=== PATIENT | male | born 1950 | race Caucasian/White ===

== ENCOUNTER 2024-05-08 10:35 | Outpatient (CLI) | payer MEDICARE, OTHER ==
[2024-05-08 11:04] LABS: BASOPHILS % (AUTO) 0.7 % (0-1); EOSINOPHILS # (AUTO) 0.1 X10'3 (0-0.9); EOSINOPHILS % (AUTO) 1.7 % (0-6); HEMATOCRIT 40.7 % (42.0-52.0); HEMOGLOBIN 13.6 g/dl (14.0-17.9); LYMPHOCYTES # (AUTO) 1.3 X10'3 (1.1-4.8); LYMPHOCYTES % (AUTO) 23.8 % (21-51); MEAN CORPUSCULAR HEMOGLOBIN 31.4 PG (27.0-31.0); MEAN CORPUSCULAR HGB CONC 33.5 g/dL (33.0-36.5); MEAN CORPUSCULAR VOLUME 93.7 FL (78-98); MEAN PLATELET VOLUME 7.9 FL (7.4-10.4); MONOCYTES # (AUTO) 0.5 X10'3 (0-0.9); MONOCYTES % (AUTO) 8.9 % (2-12); NEUTROPHILS # (AUTO) 3.6 X10'3 (1.8-7.7); NEUTROPHILS % (AUTO) 64.9 % (42-75); PLATELET COUNT 200 X10'3 (140-440); RED BLOOD COUNT 4.35 X10'6 (4.70-6.10); RED CELL DISTRIBUTION WIDTH 14.7 % (11.5-14.5); WHITE BLOOD COUNT 5.6 X10'3 (4.5-11.0)
[2024-05-08] MEDS ORDERED: IODIXANOL 320 MG/ML INFUS..BTL 100ML IV ONE (11:11)
[2024-05-08 11:13] LABS: APTT 29 SECONDS (22-32); INR 1.2 INR; PROTHROMBIN TIME 12.6 SECONDS (9.0-12.0)
[2024-05-08 11:22] LABS: ALANINE AMINOTRANSFERASE 17 U/L (12-78); ALBUMIN 3.3 G/DL (3.4-5.0); ALKALINE PHOSPHATASE 91 IU/L (46-116); ANION GAP 5 (8-16); ASPARTATE AMINO TRANSFERASE 15 U/L (10-37); BILIRUBIN,TOTAL 0.6 MG/DL (0.1-1.0); BLOOD UREA NITROGEN 14 MG/DL (7-18); BUN/CREATININE RATIO 18.7 (10.0-20.0); CALCIUM 8.9 MG/DL (8.5-10.1); CHLORIDE 104 MMOL/L (99-107); CREATININE 0.75 MG/DL (0.60-1.10); GLUCOSE 205 MG/DL (70-104); PRO BRAIN NATRIURETIC PEPTIDE 159 PG/ML (0-125); SODIUM 138 MMOL/L (135-145); TOTAL CARBON DIOXIDE 29.2 MMOL/L (24-32); TOTAL PROTEIN 6.5 G/DL (6.4-8.2); eGFR > 90 ML/MIN
== END 2024-05-08 23:59 | disposition home or self-care (01) ==
LOC: RAD 10:35
PROVIDERS: ATTEND Internal Medicine Cardiovascular Disease
DX: N28.1 Cyst of kidney, acquired (principal); K40.90 Unilateral inguinal hernia, without obstruction or gangrene, not specified as recurrent; I35.0 Nonrheumatic aortic (valve) stenosis; R06.02 Shortness of breath; I65.29 Occlusion and stenosis of unspecified carotid artery; E27.9 Disorder of adrenal gland, unspecified
CPT/HCPCS: 36415; 71046; 80053; 83880; 85025; 85610; 85730; Q9967

== ENCOUNTER 2024-07-12 05:27 | Inpatient (IN) | payer MEDICARE, OTHER ==
[2024-07-03 09:28] LABS: BILIRUBIN,URINE NEGATIVE (Neg); CLARITY,URINE SLIGHTLY CLOUDY (Clear); COLOR,URINE YELLOW (Yellow); GLUCOSE, URINE 500 mg/dl (Neg); KETONES,URINE NEGATIVE (Neg); LEUKOCYTE ESTERASE ,URINE NEGATIVE (Neg); NITRITES, URINE NEGATIVE (Neg); OCCULT BLOOD,URINE NEGATIVE (Neg); PROTEIN,URINE NEGATIVE (Neg); UROBILINOGEN,URINE 0.2 E.U/dL (0.2-1.0)
[2024-07-03 09:30] LABS: UA COLLECTION TYPE CLN CATCH MIDSTREAM
[2024-07-03 09:32] LABS: BASOPHILS % (AUTO) 0.7 % (0-1); EOSINOPHILS # (AUTO) 0.1 X10'3 (0-0.9); EOSINOPHILS % (AUTO) 1.9 % (0-6); LYMPHOCYTES # (AUTO) 1.3 X10'3 (1.1-4.8); LYMPHOCYTES % (AUTO) 19.5 % (21-51); MEAN CORPUSCULAR HEMOGLOBIN 32.6 PG (27.0-31.0); MEAN CORPUSCULAR HGB CONC 34.3 g/dL (33.0-36.5); MEAN CORPUSCULAR VOLUME 94.8 FL (78-98); MEAN PLATELET VOLUME 8.3 FL (7.4-10.4); MONOCYTES # (AUTO) 0.4 X10'3 (0-0.9); MONOCYTES % (AUTO) 6.8 % (2-12); NEUTROPHILS # (AUTO) 4.6 X10'3 (1.8-7.7); NEUTROPHILS % (AUTO) 71.1 % (42-75); PRE OP HEMATOCRIT 42.1 % (42.0-52.0); PRE OP HEMOGLOBIN 14.5 g/dL (14.0-17.9); PRE OP PLATELET COUNT 214 X10'3 (140-440); PRE OP WHITE BLOOD COUNT 6.5 10'3 (4.8-10.8); RED BLOOD COUNT 4.44 X10'6 (4.70-6.10); RED CELL DISTRIBUTION WIDTH 14.6 % (11.5-14.5)
[2024-07-03 09:39] LABS: BACTERIA,URINE FEW /HPF (Neg); RBC,URINE 0-2 /HPF (0-2); SQUAMOUS EPITHELIAL CELL,UR FEW /LPF (FEW); WBC,URINE 0-4 /HPF (0-4)
[2024-07-03 09:43] LABS: PRE OP INR 1.2 INR; PRE OP PROTIME 12.4 SECONDS (9.0-12.0)
[2024-07-03 09:53] LABS: HEMOGLOBIN A1C 6.4 % (4.5-6.2)
[2024-07-03 09:56] LABS: ALBUMIN 3.5 G/DL (3.4-5.0); ALKALINE PHOSPHATASE 85 IU/L (46-116); BLOOD UREA NITROGEN 13 MG/DL (7-18); BUN/CREATININE RATIO 16.9 (10.0-20.0); CALCIUM 8.9 MG/DL (8.5-10.1); CHLORIDE 103 MMOL/L (99-107); CREATININE 0.77 MG/DL (0.60-1.10); PRE OP ALT 24 U/L (30-65); PRE OP ANION GAP 9 (8-16); PRE OP AST 18 U/L (10-37); PRE OP BILIRUB, TOTAL 0.6 MG/DL (0.0-1.0); PRE OP GLUCOSE 181 MG/DL (70-104); PRE OP SODIUM 139 MMOL/L (135-145); PRO BRAIN NATRIURETIC PEPTIDE 180 PG/ML (0-125); TOTAL CARBON DIOXIDE 27.3 MMOL/L (24-32); TOTAL PROTEIN 6.9 G/DL (6.4-8.2); eGFR > 90 ML/MIN
[2024-07-11] MEDS: DOCUMENT DATE & TIME OF BETA-BLOCKER PO ONE (21:00)
[~2024-07-12] VITALS: Ht 180.3 cm; Wt 108.2 kg
[2024-07-12] VITALS (32 sets, daily range): BP systolic 117–175; BP diastolic 52–89; PULSE 50–63; RESP 10–20; TEMP 97.5–97.6; O2SAT 94–100
[~2024-07-12 05:27] MED LIST: ATOR-429 PO; FLEC150T PO; GLIM2TAB6 PO; LISI20TA28 PO; MAGN400C PO; METF-438 PO; METH850P PO; METO-395 PO; OMEG100037 PO; PIOG45TA5 PO; RIVA20TA PO
[2024-07-12] MEDS: nitroPRUSSIDE (NIPRIDE) (200MCG/ML) 100ML Drip IV SCH (05:30)
[2024-07-12] MEDS: ceFAZolin 2gm in dextrose, iso 50 ML IV ONE (05:30)
[2024-07-12] MEDS ORDERED: ondansetron/PF 4mg/2ml inj IV PRN ×3 (05:30→08:05)
[2024-07-12] MEDS: phenylephrine inj 50 MG in normal saline 250ml IV solN IV SCH (05:30)
[2024-07-12] MEDS: famotidine 20mg tablet PO ONE (06:33)
[2024-07-12] MEDS: aspirin 325mg tablet PO ONE (06:33)
[2024-07-12] MEDS: ringers solution, lacted 1,000 ML IV SCH ×2 (06:34→16:13)
[2024-07-12] MEDS: VANCOMYCIN 1,500MG inj. 1,500 MG in normal saline 500ml IV soln 300 ML IV ONE (06:35)
[2024-07-12] MEDS ORDERED: heparin 1,000 UNITS/NS 500ml 500 ML ONE (06:47)
[2024-07-12] MEDS ORDERED: iohexol 350MG/ML 100ml bottle IV ONE (06:47)
[2024-07-12] MEDS ORDERED: protamine sulfate 10mg/ml inj. ONE (06:52)
[2024-07-12] MEDS ORDERED: LIDOcaine 1% (10mg/ml)w/preservative inj. 20ml MDV ONE (06:52)
[2024-07-12] MEDS ORDERED: sevoflurane 250ml liquid IH ONE (06:56)
[2024-07-12] MEDS ORDERED: fentaNYL/PF 50MCG/1 ML 2ML syringe ONE (07:00)
[2024-07-12] MEDS ORDERED: midazolam 1 mg/ML 2ml injection ONE (07:00)
[2024-07-12] MEDS ORDERED: LIDOcaine 1% (10mg/ml) 2ml vial ONE (07:18)
[2024-07-12] MEDS ORDERED: heparin 1,000unit/ml 10ml vial 10 ML ONE ×2 (07:30→07:49)
[2024-07-12] MEDS ORDERED: propofol inj 20 ML IV ONE (07:30)
[2024-07-12] MEDS ORDERED: proCHLORperazine 10 MG/2 ml inj IV PRN ×2 (07:45→08:05)
[2024-07-12] MEDS ORDERED: meperidine/PF 25mg/ml syringe IV PRN ×3 (07:45)
[2024-07-12] MEDS ORDERED: morphine 2 MG/ML inj. syringe IV PRN (07:45)
[2024-07-12] MEDS ORDERED: morphine 4 MG/ML inj SYRINge IV PRN (07:45)
[2024-07-12] MEDS ORDERED: ePHEDrine 50MG/ML INJ. ONE (07:50)
[2024-07-12] MEDS: flecainide 50mg tablet PO SCH (08:00)
[2024-07-12] MEDS ORDERED: potassium Cl 20mEq/100mL bag 100 ML IV PRN (08:05)
[2024-07-12] MEDS ORDERED: diphenhydrAMINE 25mg capsule PO PRN (08:05)
[2024-07-12] MEDS ORDERED: potassium CL 10mEq/100ml bag 100 ML IV PRN (08:05)
[2024-07-12] MEDS ORDERED: hydrALAZINE 20mg/ml inj. IV PRN (08:05)
[2024-07-12] MEDS ORDERED: magnesium sulf-water 4G/100mL 100 ML IV PRN (08:05)
[2024-07-12] MEDS ORDERED: potassium Cl 40MEQ/1/2NS 520ml 520 ML IV PRN (08:05)
[2024-07-12] MEDS ORDERED: acetaminophen 325mg tablet PO PRN (08:05)
[2024-07-12] MEDS ORDERED: pantoprazole 40mg Tablet.DR PO PRN (08:05)
[2024-07-12] MEDS ORDERED: dextrose 50%-water 50ml dispensing syringe IV PRN ×2 (08:05)
[2024-07-12] MEDS ORDERED: potassium Cl 40MEQ/270ML bag 250 ML IV PRN (08:05)
[2024-07-12] MEDS ORDERED: DEXTROSE 15 GM of carb/4 tabs (each vial/BOTTLE has 4 tablets) PO PRN ×2 (08:05)
[2024-07-12] MEDS ORDERED: glucagon, human recombinant 1mg kit SUBCUT PRN (08:05)
[2024-07-12] MEDS ORDERED: magnesium sulf-water 2g/50mL 50 ML IV PRN (08:05)
[2024-07-12] MEDS ORDERED: HYDROcodone/acetaminophen 5mg/325mg tablet PO PRN (08:05)
[2024-07-12] MEDS ORDERED: labetalol 20mg/4ml (5mg/ml) syringe IV PRN (08:05)
[2024-07-12] MEDS ORDERED: potassium Cl 20 mEq SR tablet PO PRN (08:05)
[2024-07-12] MEDS: normal saline 1000ml 1,000 ML IV SCH (11:29)
[2024-07-12] MEDS: INSULIN LISPRO 100 UNIT/ML INSULN.PEN MULTI-DOSE SQ SCH ×2 (12:00)
[2024-07-12] MEDS: sod chloride 0.9% 10ml flush syringe IV SCH (16:00)
[2024-07-12] MEDS: ceFAZolin 1GM/D5W- ADD-VANTAGE 50 ML IV SCH (16:44)
[2024-07-12] MEDS: ALPRAZolam 0.25mg tablet PO PRN (20:07)
[2024-07-12] MEDS: docusate sod 100mg capsule PO PRN (20:07)
[2024-07-12] MEDS: magnesium oxide 400mg tablet PO SCH (20:08)
[2024-07-12] MEDS: metoprolol succinate 25mg (24-HOUR) SR. Tablet PO SCH (20:08)
[2024-07-12] MEDS: VANCOMYCIN 1GM 200ML H20 (PEG) 200 ML IV SCH (20:09)
[2024-07-12] MEDS: atorvastatin 20mg tablet PO SCH (22:34)
[2024-07-13] VITALS: BP 132/74; PULSE 55; RESP 16
[2024-07-13 02:00] VITALS: BP_SYST 137; BP_SYST 146; BP_DIAS 61; BP_DIAS 71; PULSE 66; RESP 14; TEMP 97.8; O2SAT 96
[2024-07-13 04:00] VITALS: BP 111/48; PULSE 65; RESP 18
[2024-07-13 07:00] VITALS: BP 123/63; PULSE 60; RESP 13; TEMP 97.4; O2SAT 98
[2024-07-13 07:43] LABS: BASOPHILS % (AUTO) 0.4 % (0-1); EOSINOPHILS # (AUTO) 0.1 X10'3 (0-0.9); EOSINOPHILS % (AUTO) 1.9 % (0-6); HEMATOCRIT 39.8 % (42.0-52.0); HEMOGLOBIN 13.4 g/dl (14.0-17.9); LYMPHOCYTES # (AUTO) 0.9 X10'3 (1.1-4.8); LYMPHOCYTES % (AUTO) 11.9 % (21-51); MEAN CORPUSCULAR HEMOGLOBIN 32.1 PG (27.0-31.0); MEAN CORPUSCULAR HGB CONC 33.8 g/dL (33.0-36.5); MEAN PLATELET VOLUME 8.3 FL (7.4-10.4); MONOCYTES # (AUTO) 0.8 X10'3 (0-0.9); MONOCYTES % (AUTO) 9.5 % (2-12); NEUTROPHILS % (AUTO) 76.3 % (42-75); PLATELET COUNT 159 X10'3 (140-440); RED BLOOD COUNT 4.19 X10'6 (4.70-6.10); WHITE BLOOD COUNT 7.9 X10'3 (4.5-11.0)
[2024-07-13] MEDS: OMEGA-3/DHA/EPA/FISH OIL 1 EACH CAPSULE.DR PO SCH (08:12)
[2024-07-13] MEDS: lisinopril 20mg tablet PO SCH (08:13)
[2024-07-13 08:33] LABS: ALANINE AMINOTRANSFERASE 15 U/L (12-78); ALBUMIN 3.2 G/DL (3.4-5.0); ALKALINE PHOSPHATASE 84 IU/L (46-116); ANION GAP 4 (8-16); ASPARTATE AMINO TRANSFERASE 14 U/L (10-37); BILIRUBIN,TOTAL 1.1 MG/DL (0.1-1.0); BLOOD UREA NITROGEN 10 MG/DL (7-18); BUN/CREATININE RATIO 13.3 (10.0-20.0); CALCIUM 8.3 MG/DL (8.5-10.1); CHLORIDE 107 MMOL/L (99-107); CREATININE 0.75 MG/DL (0.60-1.10); GLUCOSE 133 MG/DL (70-104); POTASSIUM 4.1 MMOL/L (3.5-5.1); PRO BRAIN NATRIURETIC PEPTIDE 515 PG/ML (0-125); SODIUM 140 MMOL/L (135-145); TOTAL PROTEIN 6.5 G/DL (6.4-8.2); eCRCL 95 ML/MIN; eGFR > 90 ML/MIN
[2024-07-13 11:00] VITALS: BP 112/91; PULSE 55; RESP 20; TEMP 97.9; O2SAT 96
== END 2024-07-13 12:28 | disposition home or self-care (01) | DRG 266 ==
LOC: PAS IN 05:27 → PACU 08:11 → PCU 3S 18:45
PROVIDERS: ADMIT Internal Medicine Cardiovascular Disease; ATTEND Internal Medicine Cardiovascular Disease
PROC: B41D1ZZ Fluoroscopy of Aorta and Bilateral Lower Extremity Arteries using Low Osmolar Contrast (ICD-10-PCS; 2024-07-12)
PROC: 03HY32Z Insertion of Monitoring Device into Upper Artery, Percutaneous Approach (ICD-10-PCS; 2024-07-12)
PROC: 02RF38Z Replacement of Aortic Valve with Zooplastic Tissue, Percutaneous Approach (ICD-10-PCS; principal; 2024-07-12 06:56)
DX: I35.0 Nonrheumatic aortic (valve) stenosis (principal); Z00.6 Encounter for examination for normal comparison and control in clinical research program; I50.33 Acute on chronic diastolic (congestive) heart failure; I11.0 Hypertensive heart disease with heart failure; I48.91 Unspecified atrial fibrillation; E11.9 Type 2 diabetes mellitus without complications; E78.5 Hyperlipidemia, unspecified
CPT/HCPCS: 33361; 36415; 71045; 71046; 76937; 80053; 81001; 82948; 83036; 83735; 83880; 85025; 85347; 85610; 85730; 86885; 86900; 86901; 86920; 87081; 93005; 93308; A4618; A6258; A6449; C1756; C1760; C1769; C1894; G0378; J0690; J1644; J1815; J2003; J2250; J2371; J2704; J2720; J3010; J3370; J3372; J3490; J7030; J7040; J7050; J7120; Q9967